=== PATIENT | male | born 1995 | race Caucasian/White ===

== ENCOUNTER 2019-06-21 10:15 | Emergency (ER) | payer BC, SELFPAY ==
[2019-06-21] VITALS (27 sets, daily range): BP systolic 102–134; BP diastolic 58–102; PULSE 72–96; RESP 18–20; TEMP 36.4–36.7; O2SAT 95–100
[2019-06-21] MEDS: Ondansetron 4 MG/2 ML VIAL IVP (10:42)
[2019-06-21] MEDS: Normal Saline 1,000 ML 1000 ML IV (10:42)
[2019-06-21 10:43] LABS: Abs Immature Grans 0.05 k/cumm (0.0-0.09); Absolute Eosinophil Count 0.02 k/cumm (0.0-0.7); Absolute Lymphocyte Count 1.28 k/cumm (1.2-3.4); Basophils % 0.2; Eosinophils % 0.1; HCT 45.8 % (40.0-50.0); HGB 16.5 g/dL (13.5-17.5); Immature Grans % 0.3 %; Lymphocytes % 6.6; Mean Corpuscular Hemoglobin 30.3 pg (27.0-33.0); Mean Platelet Volume 9.3 fL (8.0-11.0); Monocytes % 8.7; Neutrophils % 84.1; Platelet Count 263 x1000/uL (130-400); RBC 5.45 m/cumm (4.50-6.00); RBC Distribution Width 12.7 % (11.8-14.1); White Blood Cell Count 19.43 k/cumm (4.4-10.8)
[2019-06-21 10:53] LABS: Absolute Basophil Count 0.04 k/cumm (0.0-0.2); Absolute Monocyte Count 1.69 k/cumm (0.11-0.7); Absolute Neutrophil Count 16.34 k/cumm (1.2-6.7)
[2019-06-21 10:57] LABS: ALT 15 U/L (16-63); AST 12 U/L (15-37); Albumin 3.6 g/dL (3.4-5.0); Alkaline Phosphatase 98 U/L (46-116); Anion Gap 8.1 mmol/L (3-11); BUN 10 mg/dL (7-18); CO2 30.9 mmol/L (21.0-32.0); CREATININE 1.42 mg/dL (0.70-1.30); Calcium 8.2 mg/dL (8.5-10.1); Chloride 99 mmol/L (98-107); Glucose 122 mg/dL (74-106); Lipase 88 U/L (73-393); Potassium 3.9 mmol/L (3.5-5.1); Sodium 138 mmol/L (136-145); Total Protein 7.4 g/dL (6.4-8.2)
[2019-06-21 11:05] LABS: Diff Comment Diff Reviewed; RBC Morphology Normal
[2019-06-21] MEDS: Lactated Ringers 1,000 ML 1000 ML IV (11:39)
[2019-06-21] MEDS: Normal Saline Flush 10 ML SYR IVP (11:39)
--- NOTE | 2019-06-21 12:56 | ED.GENADUL_ITS ---
Discharge Plan Disposition Patient Disposition: HOME Discharge Details Chief Complaint: Nausea/Vomit/Diar Clinical Impression: Nausea and vomiting, Hematemesis, Elevated serum creatinine Primary Care Provider: Dolores Narvaez ED Provider: Willis Frederick Home Meds and New Rx's Prescriptions: Continued ondansetron HCl [Zofran] 8 mg tablet 8 mg PO Q8H PRN (Reason: nausea and vomiting) Qty: 15 RF: 0 Discharge Instructions Instructions: Acute Nausea and Vomiting (ED), Hematemesis (ED) Additional Instructions: Please drink small amounts of fluid often in order to maintain hydration. Your blood test revealed that your creatinine was elevated this indicates potential issues with kidney function. Please be sure to discuss with your doctor and have repeat blood testing done next week. Please contact your primary care physician to arrange follow-up. Call today. Return to the ER for any worsening or new concerning symptoms. Stand Alone Forms: Work Release Referrals: Dolores Narvaez DO [Primary Care Provider] - Discharge Data Discharge Date/Time-TO BE ENTERED AT DEPARTURE: 06/21/19 13:45 Medical Decision Making 23-year-old male here with nausea and vomiting for the past 3 days, symptoms were initially worse and improved after taking Zofran prescribed by PCP, now with blood-tinged to his vomit. Last vomited earlier today. Patient appears mildly dehydrated. Abdominal exam benign. Labs to assess for electrolyte abnormalities and hepatic or biliary disease were reviewed. Normal LFTs, normal lipase, normal electrolytes, patient does have significant leukocytosis and creatinine mildly elevated at 1.42. Suspect gastroenteritis. Patient was given IV rehydration. He was given Zofran IV. On reassessment, patient was able to tolerate oral fluids. Labs were reviewed with the patient and he was encouraged to follow-up for repeat labs with PCP. Disposition decision was made weighing the risks and benefits of hospitalization versus outpatient treatment, the risk for further decompensation, and the patient's wishes. The patient was stable and requested discharge. Prior to discharge, my usual and customary return precautions were reviewed with the patient - this included follow-up instructions and reason to return to the emergency department if condition worsens, does not improve as expected, or other new concerns arise. HPI General Mode of arrival: ambulatory . Date/Time Provider Initiated Documentation: 06/21/19 10:57 . Limitations to Documentation: no limitations . Information obtained by: patient . HPI Narrative: 23-year-old male, otherwise healthy, presents with chief complaint of nausea vomiting for the past 3 days. Vomiting was severe on Thursday and Thursday. He was prescribed Zofran by PCP and symptoms were improving yesterday. He had another episode of vomiting this morning. He does note some small blood tinge to vomit since yesterday. No bright red blood per rectum or melena. No diarrhea. No abdominal pain. Patient last took Zofran around 2 AM. Related Data Home Medications Medication Instructions Recorded Confirmed ondansetron HCl 8 mg tablet 8 mg PO Q8H PRN #15 tab 06/20/19 06/21/19 Previous Rx's Medication Instructions Recorded ondansetron HCl 8 mg tablet 8 mg PO Q8H PRN #15 tab 06/20/19 Allergies Allergy/AdvReac Type Severity Reaction Status Date / Time No Known Allergies Allergy Unverified 06/21/19 10:23 General Stated Complaint: Nausea/Vomit/Diar DUONG: 3 Review of Systems All systems reviewed & are unremarkable except as noted in HPI and below Constitutional Constitutional: Denies fever(s) Gastrointestinal Gastrointestinal: Reports as per HPI, Denies abdominal pain, Reports nausea and Reports vomiting PFSH Family History Paternal Grandfather Alcohol abuse Mother Asthma Maternal Uncle Asthma Paternal Grandmother Cancer Breast Social History Smoking/Tobacco Use Status: Never Alcohol Intake: current Alcohol Intake frequency: a few times a week Alcohol type: beer Details: sometimes drinks 3 or more--6-7 beers at most- Drug use: Never Substance use type: does not use Adopted: No Caregiver/Support person: No Foster care: No Household members: friend(s) Housing: apartment Communication Needs: None Do you need help understanding health information?: Rarely current occupation: Typewriter Operator [employer] Sexually active: No Do you think of yourself as: straight/heterosexual Current gender identity: male What type of physical activity do you participate in: bicycling and other Details: softball, downhill skiing- Duration: > 90 minutes/day Frequency: 3-4 times per week Seatbelt use: sometimes Helmet use: Yes Drive intox or ride w/intox hazmat tanker driver: No Working smoke detector in home: Yes Fire extinguisher in home: Yes Carbon monox detector in home: Yes Firearms in home: Yes (unloaded but not locked-LH) Do you feel safe in your relationship?: Yes Exam Const General: cooperative and no acute distress HENMT Mouth: mucous membranes dry Eyes Conjunctivae: normal conjunctivae Neck Neck: trachea midline and supple Resp Auscultation: clear to auscultation bilaterally, no rales, no rhonchi and no wheezes Cardio Rate: regular rate and not tachycardic Rhythm: regular rhythm GI Palpation: soft, not firm, no guarding, no masses, not rigid and nontender Skin General skin exam: no rashes or lesions noted Neuro General: alert, awake and tone normal Extrem General: no edema Psych Appearance: grossly normal Mental Status: mental status grossly normal Course Vital Signs Vital signs: Vital Signs Temperature 36.7 C 06/21/19 10:20 Pulse 96 H 06/21/19 10:20 Respiratory Rate 20 06/21/19 10:20 Blood Pressure 133/82 06/21/19 10:20 Pulse Oximetry 100 06/21/19 10:20 Temperature 36.4 C L 06/21/19 11:09 Temperature Source Skin 06/21/19 11:09 Pulse 90 06/21/19 12:46 Pulse Rhythm Regular 06/21/19 11:09 Pulse Strength Normal 06/21/19 11:09 Respiratory Rate 18 06/21/19 11:44 Respiratory Effort 06/21/19 11:09 Respiratory Depth Normal 06/21/19 11:09 Respiratory Pattern Normal 06/21/19 11:09 Blood Pressure 129/81 06/21/19 12:46 Blood Pressure Mean 92 06/21/19 12:46 Blood Pressure Position Supine 06/21/19 11:09 Pulse Oximetry 95 06/21/19 12:46 Oxygen Delivery Method Room Air 06/21/19 11:44 Oxygen Flow Rate 0 06/21/19 11:44 Pain Level 0 06/21/19 11:44 Lab/Test Results Lab/Test Results: Laboratory Tests Range/Units 06/21/19 06/21/19 10:30 10:30 WBC (4.4-10.8) k/cumm 19.43 H RBC (4.50-6.00) m/cumm 5.45 Hgb (13.5-17.5) g/dL 16.5 Hct (40.0-50.0) % 45.8 MCV (80-95) fL 84.0 MCH (27.0-33.0) pg 30.3 MCHC (32.0-36.0) g/dL 36.0 RDW (11.8-14.1) % 12.7 Plt Count (130-400) x1000/uL 263 MPV (8.0-11.0) fL 9.3 Immature Gran % % 0.3 Neutrophils % 84.1 Lymphocytes % 6.6 Monocytes % 8.7 Eosinophils % 0.1 Basophils % 0.2 Absolute Neutrophils (1.2-6.7) k/cumm 16.34 H Absolute Lymphocytes (1.2-3.4) k/cumm 1.28 Absolute Monocytes (0.11-0.7) k/cumm 1.69 H Absolute Eosinophils (0.0-0.7) k/cumm 0.02 Absolute Basophils (0.0-0.2) k/cumm 0.04 Differential Comment Diff reviewed RBC Morphology Normal Sodium (136-145) mmol/L 138 Potassium (3.5-5.1) mmol/L 3.9 Chloride (98-107) mmol/L 99 Carbon Dioxide (21.0-32.0) mmol/L 30.9 Anion Gap (3-11) mmol/L 8.1 BUN (7-18) mg/dL 10 Creatinine (0.70-1.30) mg/dL 1.42 H Estimated GFR/1.73 m2 (mL/min/1.73m2) >= 60.00 Glucose (74-106) mg/dL 122 H Calcium (8.5-10.1) mg/dL 8.2 L Total Bilirubin (0.2-1.0) mg/dL 1.0 AST (15-37) U/L 12 L ALT (16-63) U/L 15 L Alkaline Phosphatase (46-116) U/L 98 Total Protein (6.4-8.2) g/dL 7.4 Albumin (3.4-5.0) g/dL 3.6 Lipase (73-393) U/L 88
== END 2019-06-21 13:45 | disposition home or self-care (01) ==
PROVIDERS: Emergency Provider Student in an Organized Health Care Education/Training Program; PCP Student in an Organized Health Care Education/Training Program
DX: K92.0 Hematemesis (principal); R94.4 Abnormal results of kidney function studies; E86.0 Dehydration; D72.829 Elevated white blood cell count, unspecified
CPT/HCPCS: 36415; 80053; 83690; 96361; 96374; 99284; 85025; J2405